=== PATIENT | female | born 1990 | race Caucasian/White ===

== ENCOUNTER 2018-09-25 05:20 | Inpatient (IN) ==
[2018-09-25] MEDS ORDERED: ceFAZolin 2 GM Premix Inj 2 GM/50 ML PIGGYBACK IV.SIG SCH (06:00)
[2018-09-25] MEDS ORDERED: Citric Acid/Sodium Citrate Liq 30 ML UDC PO SCH (06:00)
[2018-09-25 06:08] LABS: Baso % (Auto) 0.4 % (0.0-2.0); Eos # (Auto) 0.1 th/mm3 (0.0-0.4); Eos % (Auto) 0.9 % (0.0-4.0); Hematocrit 32.4 % (35.0-46.0); Hemoglobin 11.3 gm/dL (11.6-15.3); Lymph # (Auto) 2.5 th/mm3 (1.0-4.8); Lymph % (Auto) 19.4 % (9.0-44.0); Mean Corpuscular HGB Conc 34.8 % (32.0-36.0); Mean Corpuscular Hemoglobin 29.9 pg (27.0-34.0); Mean Corpuscular Volume 85.9 fL (80.0-100.0); Mean Platelet Volume 8.9 fL (7.0-11.0); Mono # (Auto) 0.8 th/mm3 (0.0-0.9); Mono % (Auto) 6.2 % (0.0-8.0); Neut # (Auto) 9.3 th/mm3 (1.8-7.7); Neut % (Auto) 73.1 % (16.0-70.0); Platelet Count 212 th/mm3 (150-450); Red Blood Count 3.78 mil/mm3 (4.00-5.30); Red Cell Distribution Width 13.4 % (11.6-17.2); White Blood Count 12.7 th/mm3 (4.0-11.0)
[2018-09-25 06:17] LABS: Bacteria,Urine Few /hpf; Bilirubin,Urine Negative (Negative); Clarity,Urine Cloudy (Clear); Color,Urine Yellow (Yellw/Straw); Glucose,Urine (UA) Negative (Negative); Leukocyte Esterase,Urine Large (Negative); Mucus,Urine Few /lpf (Occasional); Nitrite,Urine Negative (Negative); Specific Gravity,Urine 1.018 (1.002-1.035); Squamous Epithelial Cell,Urine 14 /hpf (0-5)
[2018-09-25] MEDS ORDERED: Morphine Sulfate PF Inj 5 MG/10 ML Ampul ONE (07:19)
[2018-09-25] MEDS ORDERED: Acetaminophen 325 MG Tablet PO PRN (08:29)
[2018-09-25] MEDS ORDERED: Oxytocin 30 Units/500ml Premix 30 UNITS/500 ML BAG IV.SIG ONE (08:29)
[2018-09-25] MEDS ORDERED: Zolpidem Tartrate 5 MG Tablet PO PRN (08:29)
[2018-09-25] MEDS ORDERED: Senna/Docusate Sodium 8.6/50 MG Tablet PO PRN (08:29)
[2018-09-25] MEDS ORDERED: Simethicone 80 MG Chew Tablet PO PRN (08:29)
[2018-09-25] MEDS ORDERED: Oxytocin 30 Units/500ml Premix 30 UNITS/500 ML BAG ONE (08:57)
--- NOTE | 2018-09-25 09:08 | MH ---
cc: Anel Galan MD DATE OF ADMISSION: 09/25/2018 HISTORY OF PRESENT ILLNESS: The patient is 28 years old, 1, para 0 with intrauterine at 39 weeks with breech presentation. care at [facility]. The patient had a normal course. She is O negative. GCT was normal. Group B strep was negative. Placenta was fundal. PAST OBSTETRIC HISTORY: She is prima gravid. PAST GYNECOLOGIC HISTORY: Unremarkable. She had a normal Pap smear in 02/2018. PAST MEDICAL HISTORY: She denies hypertension, diabetes or asthma. PAST SURGICAL HISTORY: She had a pilonidal cyst. SOCIAL HISTORY: She denies toxic habits. MEDICATIONS: She takes vitamins. ALLERGIES: NO KNOWN DRUG ALLERGIES. PHYSICAL EXAMINATION: VITAL SIGNS: Stable. She is afebrile. HEAD, HEART, CHEST, LUNG: Exams are within normal limits. ABDOMEN: Soft, nontender, gravid. PELVIC: Deferred. EXTREMITIES: No edema, cyanosis or clubbing. Nontender. ASSESSMENT AND PLAN: She is 28 years old, 1, para 0, intrauterine at 39 weeks, breech presentation, scheduled for primary section. MD DAISY Huntley/ , 08:47 AM , 08:51 AM
--- NOTE | 2018-09-25 09:25 | MP ---
cc: Anel Galan MD DATE OF OPERATION: 09/25/2018 DATE OF PROCEDURE: 09/25/2018 PREOPERATIVE DIAGNOSES: 1. Intrauterine at 39 weeks. 2. Breech presentation. POSTOPERATIVE DIAGNOSES: 1. Intrauterine at 39 weeks. 2. Breech presentation. PROCEDURE PERFORMED: Primary lower segment transverse section via Pfannenstiel skin incision. SURGEON: Anel Galan MD ANESTHESIA: Spinal. FLUIDS. 1700 mL crystalloid. ESTIMATED BLOOD LOSS: 700 mL URINE OUTPUT: 150 mL, clear yellow at the end of the procedure. FINDINGS: Live male was delivered breech presentation. Apgars 8 at 1 minute and 9 at 5 minutes, weight 7 pounds 2 ounces. DESCRIPTION OF PROCEDURE: The patient was taken to the operating room where spinal anesthesia was found to be adequate. She was prepped and draped in the normal sterile fashion in the dorsal supine position with a leftward tilt. A Pfannenstiel skin incision was made with a scalpel and carried down to the underlying layer of fascia. The fascia was nicked in the midline and the incision extended laterally with curved Hou scissors. Attention was turned to the inferior aspect of the incision, which was grasped with Sarabjit clamps, elevated, and the rectus muscles dissected off sharply. Attention was turned to the superior aspect of the incision, which was grasped with Sarabjit clamps, elevated, and the rectus muscles dissected off sharply. Rectus muscles were in the midline and the peritoneum was identified, grasped between two Charisse clamps, elevated, and entered sharply with Metzenbaum scissors. This incision was extended superiorly and inferiorly with good visualization of the bladder. The bladder blade was inserted. Vesicouterine peritoneum was identified and entered sharply with Metzenbaum scissors. This incision was extended laterally and the bladder flap created digitally. The lower uterine segment was incised in a transverse fashion with the scalpel. The incision was extended laterally with bandage scissors. Clear amniotic fluid was noted. The breech was delivered sacrum anterior. The shoulders were delivered atraumatically. Nuchal cord x2 was noted. The head was delivered atraumatically. The oropharynx and nasopharynx were bulb suctioned with a syringe. The cord was clamped x2 and cut after waiting 45 seconds. The was handed off to the waiting nurse. Placenta was delivered manually. Uterus was cleared of all clots and debris. The uterine incision was repaired in 2 layers with #1 Vicryl. The bladder flap was closed in a running fashion with 3-0 chromic. The gutters were cleared of all clots and debris. The fascia was reapproximated in a running fashion with 0 Vicryl. The skin was closed in a subcuticular fashion with 4-0 Monocryl. Steri-Strips and a pressure dressing were applied. The sponge, lap, needle and instrument counts were correct x3. The patient was transferred to the recovery room in stable condition. MD DAISY Huntley/lisset , 08:28 AM , 08:35 AM
[2018-09-25] MEDS ORDERED: Naloxone Inj 0.4 MG/ML Vial IV.PUSH PRN (10:12)
--- NOTE | 2018-09-25 11:49 | P.OBGPN ---
Qu[employer] PDMP interviewed report
[2018-09-25] MEDS ORDERED: Oxytocin 30 Units/500ml Premix 30 UNITS/500 ML BAG IV.SIG PRN (13:29)
--- NOTE | 2018-09-26 09:53 | P.PNOB ---
Subjective Post op day: 1 Interval history: Doing well, vaginal bleeding less than menses, pain controlled, ambulating without difficulty, voiding spontaneously. Objective Vital Signs/I&O: Vital Signs 09/25/18 10:35 09/25/18 15:55 09/25/18 20:00 Temperature 98.6 F 98.2 F 98.3 F Pulse Rate 73 94 H 72 Respiratory Rate 16 16 18 Blood Pressure 113/66 134/78 121/76 09/26/18 00:00 09/26/18 04:30 09/26/18 08:00 Temperature 98.1 F 98.3 F Pulse Rate 86 67 87 Respiratory Rate 18 18 18 Blood Pressure 107/62 98/58 L 110/64 Result Diagrams: 09/25/18 05:50 Objective Remarks: GENERAL: Well-nourished, well-developed patient. CARDIOVASCULAR: Regular rate and rhythm without murmurs, gallops, or rubs. RESPIRATORY: Breath sounds equal bilaterally. No accessory muscle use. ABDOMEN/GI: Abdomen soft, non-tender, bowel sounds present. Dressing clean, dry and intact. Fundus: Firm, non-tender at umbilicus. GENITOURINARY: Light to moderate bleeding. EXTREMITIES: No cyanosis or edema, non-tender, without signs of DVT. Medications and IVs: Active Medications Acetaminophen (Tylenol) 650 mg PO Q6H PRN PRN Reason: PAIN SCALE 1 TO 2 Citric Acid/Sodium Citrate (Sodium Citrate/Citric Acid Liq) 30 ml PO ELECTRIC SCOOP OPERATOR [facility] Stop: 09/29/18 05:59 Last Admin: 09/25/18 06:54 Dose: 30 ml Diphenhydramine HCl (Benadryl) 50 mg PO Q6H PRN PRN Reason: MILD TO MODERATE ITCHING Stop: 09/26/18 10:11 Diphenhydramine HCl (Benadryl Inj) 25 mg IV.PUSH Q6H PRN PRN Reason: MILD TO MODERATE ITCHING Stop: 09/26/18 10:11 Diphtheria/Pertussis/Tetanus Vacc (Boostrix Vaccine Inj) 0.5 ml IM .ONCE ONE Stop: 09/26/18 16:01 Lactated Ringer's (Lr 1000 Ml Inj) 1,000 mls @ 150 mls/hr IV.CONT .Q6H40M [facility] Oxytocin (Pitocin 30 Units/Ns 500 Ml Premix) 30 units in 500 mls @ 100 mls/hr IV.SIG UNSCH PRN PRN Reason: Heavy bleeding Ibuprofen (Motrin) 800 mg PO Q8H PRN PRN Reason: cramping Last Admin: 09/26/18 08:15 Dose: 800 mg Measles/Mumps/Rubella Vaccine Live (M-M-R Ii Vaccine Inj) 0.5 ml SQ .ONCE ONE Stop: 09/26/18 16:01 Miscellaneous Information ([facility] 1 each OTHER UNSCH PRN PRN Reason: SEE LABEL COMMENTS Stop: 09/26/18 10:11 Miscellaneous Information ([facility] 1 each OTHER UNSCH PRN PRN Reason: SEE LABEL COMMENTS Stop: 09/26/18 10:11 Naloxone HCl (Narcan Inj) 0.4 mg IV.PUSH UNSCH PRN PRN Reason: SEE LABEL COMMENTS Stop: 09/26/18 10:11 Ondansetron HCl (Zofran Inj) 4 mg IV.PUSH Q6H PRN PRN Reason: NAUSEA OR VOMITING Oxycodone/Acetaminophen (Percocet 5/325 Mg) 1 tab PO Q4H PRN PRN Reason: PAIN SCALE 3 TO 5 Oxycodone/Acetaminophen (Percocet 5/325 Mg) 2 tab PO Q4H PRN PRN Reason: PAIN SCALE 6 TO 10 Senna/Docusate Sodium (Bridget-Colace) 2 tab PO Q12H PRN PRN Reason: CONSTIPATION Simethicone (Mylicon Chew) 80 mg PO QID PRN PRN Reason: FLATULENCE Sodium Chloride (Ns Flush) 2 ml IV.FLUSH BID [place] Last Admin: 09/25/18 21:03 Dose: 2 ml Sodium Chloride (Ns Flush) 2 ml IV.FLUSH PRN PRN PRN Reason: FLUSH AFTER USING IV ACCESS Zolpidem Tartrate (Ambien) 5 mg PO HS PRN PRN Reason: INSOMNIA Assessment and Plan - Plan 20-year-old status post primary low transverse at 39 weeks secondary to malpresentation 1. Postoperative day #1: Doing well, a.m. labs pending, continue routine postoperative and care, anticipate discharge home in the next 48 hours. -Male : We will circumcised today. 2. Reflex urine culture: We will follow-up and treat if needed
[2018-09-26 10:43] LABS: Baso % (Auto) 0.3 % (0.0-2.0); Eos # (Auto) 0.1 th/mm3 (0.0-0.4); Eos % (Auto) 0.3 % (0.0-4.0); Hematocrit 29.4 % (35.0-46.0); Lymph # (Auto) 2.9 th/mm3 (1.0-4.8); Lymph % (Auto) 15.8 % (9.0-44.0); Mean Corpuscular HGB Conc 34.1 % (32.0-36.0); Mean Platelet Volume 9.4 fL (7.0-11.0); Mono # (Auto) 1.2 th/mm3 (0.0-0.9); Mono % (Auto) 6.6 % (0.0-8.0); Neut # (Auto) 14.1 th/mm3 (1.8-7.7); Platelet Count 219 th/mm3 (150-450); Red Blood Count 3.34 mil/mm3 (4.00-5.30); Red Cell Distribution Width 13.7 % (11.6-17.2); White Blood Count 18.3 th/mm3 (4.0-11.0)
[2018-09-26] MEDS ORDERED: Measles/Mumps/Rubella Vaccine Inj 0.5 ML Vial SQ ONE (16:00)
[2018-09-26] MEDS ORDERED: Diphtheria/Tetanus/Pertussis Vaccine Inj 0.5 ML Syringe IM ONE (16:00)
--- NOTE | 2018-09-27 07:14 | P.PNOB ---
Subjective Post op day: 2 Interval history: no changes from yesterday, ready for d/c home Objective Vital Signs/I&O: Vital Signs 09/26/18 08:00 09/26/18 19:43 Temperature 98.3 F 98.3 F Pulse Rate 87 97 H Respiratory Rate 18 18 Blood Pressure 110/64 139/79 Result Diagrams: 09/26/18 09:08 Objective Remarks: GENERAL: Well-nourished, well-developed patient. CARDIOVASCULAR: Regular rate and rhythm without murmurs, gallops, or rubs. RESPIRATORY: Breath sounds equal bilaterally. No accessory muscle use. ABDOMEN/GI: Abdomen soft, non-tender, bowel sounds present. Incision: Clean, dry and intact. Fundus: Firm, non-tender at umbilicus. GENITOURINARY: Light to moderate bleeding. EXTREMITIES: No cyanosis or edema, non-tender, without signs of DVT. Medications and IVs: Active Medications Acetaminophen (Tylenol) 650 mg PO Q6H PRN PRN Reason: PAIN SCALE 1 TO 2 Citric Acid/Sodium Citrate (Sodium Citrate/Citric Acid Liq) 30 ml PO TRANSITION ASSISTANT [facility] Stop: 09/29/18 05:59 Last Admin: 09/25/18 06:54 Dose: 30 ml Lactated Ringer's (Lr 1000 Ml Inj) 1,000 mls @ 150 mls/hr IV.CONT .Q6H40M [facility] Oxytocin (Pitocin 30 Units/Ns 500 Ml Premix) 30 units in 500 mls @ 100 mls/hr IV.SIG UNSCH PRN PRN Reason: Heavy bleeding Ibuprofen (Motrin) 800 mg PO Q8H PRN PRN Reason: cramping Last Admin: 09/27/18 01:44 Dose: 800 mg Ondansetron HCl (Zofran Inj) 4 mg IV.PUSH Q6H PRN PRN Reason: NAUSEA OR VOMITING Oxycodone/Acetaminophen (Percocet 5/325 Mg) 1 tab PO Q4H PRN PRN Reason: PAIN SCALE 3 TO 5 Last Admin: 09/27/18 03:46 Dose: 1 tab Oxycodone/Acetaminophen (Percocet 5/325 Mg) 2 tab PO Q4H PRN PRN Reason: PAIN SCALE 6 TO 10 Senna/Docusate Sodium (Bridget-Colace) 2 tab PO Q12H PRN PRN Reason: CONSTIPATION Last Admin: 09/26/18 21:35 Dose: 2 tab Simethicone (Mylicon Chew) 80 mg PO QID PRN PRN Reason: FLATULENCE Sodium Chloride (Ns Flush) 2 ml IV.FLUSH BID [place] Last Admin: 09/26/18 21:00 Dose: Not Given Sodium Chloride (Ns Flush) 2 ml IV.FLUSH PRN PRN PRN Reason: FLUSH AFTER USING IV ACCESS Zolpidem Tartrate (Ambien) 5 mg PO HS PRN PRN Reason: INSOMNIA Assessment and Plan - Plan 20-year-old status post primary low transverse at 39 weeks secondary to malpresentation 1. Postoperative day #2: Doing well, d/c today -Male : s/p circ yesterday. 2. Reflex urine culture: We will follow-up and treat if needed
[2018-09-27 08:27] VITALS: BP 114/70; PULSE 82; RESP 14; TEMP 97.9
== END 2018-09-27 13:04 | disposition home or self-care (01) | DRG 788 ==
LOC: H2E 05:20
PROVIDERS: ADMIT Obstetrics & Gynecology; ATTEND Obstetrics & Gynecology
CPT/HCPCS: 59025; 81001; 85025; 85461; 86850; 86900; 86901; 87086; 90384; 90715; J0131; J2274; J2590; J2790; J7120